=== PATIENT | male | born 1990 | race Caucasian/White ===

== ENCOUNTER 2016-07-22 06:40 | Day surgery (SDC) | payer BC ==
[2016-07-18 13:59] LABS: HEMATOCRIT 44.8 % (40.0-51.0); HEMOGLOBIN 15.2 g/dL (13.6-17.8)
[2016-07-18 14:04] LABS: PARTIAL THROMBO TIME 32.4 SEC (22.5-37.2)
--- NOTE | ~2016-07-22 | OP ---
Record Of Operation [facility] [address] [place]. [address] NAME: DIONICIO YOUNG : 86 STATUS : REG [facility] [place] PAT#: [id number] AGE: 25 ADM/REG DATE : 07/22/16 MR#: [id number] REPORT SERV DATE: 07/22/16 DICTATED BY: MARK SHARMA DATE: 07/22/16 REPORT STATUS : Draft TRANSCRIBED BY: MODL DATE: 07/22/16 DATE OF PROCEDURE: 07/22/2016 PROCEDURE: 1. Septoplasty. 2. Bilateral inferior turbinate reduction. PREOPERATIVE DIAGNOSES: 1. Septal deviation with airway obstruction. 2. Turbinate hypertrophy with airway obstruction. POSTOPERATIVE DIAGNOSES: 1. Septal deviation with airway obstruction. 2. Turbinate hypertrophy with airway obstruction. ANESTHESIA: General endotracheal. COMPLICATION: None. FINDINGS: The patient was taken the OR and placed in supine position. Then he was anesthetized, prepped, and draped in standard fashion. Nose vasoconstricted and anesthetized with 1% Xylocaine with epinephrine as an injection as well as Dimitri-Synephrine topically placed on cottonoids. The patient was noted to have significant turbinate hypertrophy. He had a posterior septal deviation to the left. The caudal septum was overriding the crest to the left. He had a significant bony deviation with the cartilaginous component anteriorly on the right. Left hemitransfixion incision was made. Mucoperichondrial and mucoperiosteal flaps were elevated. Cartilaginous septum was dislocated from the bony septum. The area of bony deformity was incised with Madsen scissors and removed with John Nelson forceps. Inferior strip over the cartilaginous component was removed with Julio forceps. Inferior strip of caudal cartilage was removed. Septum was then set in the midline. Hemitransfixion incision was closed with 4-0 chromic suture. The patient had a significant deformity of the maxillary spine on the right with cartilaginous component anteriorly. A mucoperiosteal and mucoperichondrial flap was elevated over this area. An endoscopic bur was used to remove the deformity. A 4-0 plain gut suture then was used to mattress the caudal septum. The turbinate blade was inserted along the head of the left inferior turbinate and advanced to the posterior tip under endoscopic view. Turbinate stroma was shaved from a posterior to anterior direction. Blade was turned medially to the head of the turbinate for more aggressive dissection. The turbinate then was multiply outfractured with a Dallas elevator and then outfractured with a Boies elevator. The same procedure was performed on the opposite side. Some slight weakness of the tip. Therefore, part of the cartilage that had been previously harvested was refashioned for a columellar strut graft. A small incision was made between the lower lateral cartilage. A pocket was formed with tenotomy scissors. Cartilage graft was inserted. Incision was closed with interrupted 5-0 chromic suture. The patient was awakened, extubated, and taken to the recovery in good condition. Record Of Operation [address] [place]. [address] NAME: DIONICIO YOUNG : 86 STATUS : REG [facility] [place] PAT#: [id number] AGE: 25 ADM/REG DATE : 07/22/16 MR#: [id number] REPORT SERV DATE: 07/22/16 DICTATED BY: MARK SHARMA DATE: 07/22/16 REPORT STATUS : Draft TRANSCRIBED BY: DUARTE DATE: 07/22/16 LURDES/DUARTE Mark Sharma M.D. / [id number] CC: Mark Sharma M.D. NO PCP
[~2016-07-22 06:40] MED LIST: ACNE CREAM TD; FLONASE NAS; [UNRECOGNIZED DRUG - OTHER] TD
== END 2016-07-22 16:44 | disposition home or self-care (01) ==
LOC: SDC 06:40
PROVIDERS: Otolaryngology
PROC: 09TL0ZZ Resection of Nasal Turbinate, Open Approach (ICD-10-PCS; 2016-07-22)
PROC: 09QM0ZZ Repair Nasal Septum, Open Approach (ICD-10-PCS; principal; 2016-07-22 08:00)
DX: J34.2 Deviated nasal septum (principal); J44.9 Chronic obstructive pulmonary disease, unspecified; J34.3 Hypertrophy of nasal turbinates; K21.9 Gastro-esophageal reflux disease without esophagitis; J45.909 Unspecified asthma, uncomplicated; G47.33 Obstructive sleep apnea (adult) (pediatric); Z88.8 Allergy status to other drugs, medicaments and biological substances; Z88.5 Allergy status to narcotic agent; Z98.890 Other specified postprocedural states
CPT/HCPCS: 36415; 85014; 85018; 85730; 88300; A9270-GY; J0690; J1170; J2250; J2405; J2550; J3010